=== PATIENT | male | born 1995 | race Caucasian/White ===

== ENCOUNTER → 2020-09-19 10:16 | Outpatient (CLI) | payer BC, SELFPAY ==
--- NOTE | ~2020-09-19 | CT_ITS ---
EXAMINATION: CT abdomen pelvis wo/w con DATE: 09/19/2020 10:59 INDICATION: Left flank and left lower quadrant abdominal pain. History of kidney stones. TECHNIQUE: Computed tomography (CT) of the abdomen and pelvis was performed without and subsequently with 130 cc Omnipaque 350 intravenous contrast. Automated exposure control and iterative reconstructi on technique were employed. Exam dose: 1363.40 mGy-cm total exam DLP. COMPARISON: None. FINDINGS: The lung bases are clear of infiltrate or consolidation. Normal heart size. No pericardial or pleural effusion. Diffuse hepatic steatosis. Normal splenic size. No hepatic, splenic, pancreatic, and adrenal or renal space-occupying mass lesion is evident. No bile duct or pancreatic duct dilatation. No urinary tract calculus or hydroureteronephrosis is detected. The urinary bladder is unremarkable. Prostate gland and seminal vesicles are unremarkable. Normal caliber of the abdominal aorta. No intraperitoneal or retroperitoneal or pelvic mass lesion or adenopathy or ascites. Normal appendix. No bowel obstruction, bowel wall thickening, pneumatosis or intraperitoneal free air . Included skeletal structures are unremarkable. IMPRESSION: Hepatic steatosis No urinary tract calculus or hydroureteronephrosis Normal appendix Reviewed, dictated and finalized at [facility]. Reviewed, dictated and finalized at [facility].
== END ==
PROVIDERS: PCP Emergency Medicine; Visit Provider Emergency Medicine
DX: R10.9 Unspecified abdominal pain (principal); K76.0 Fatty (change of) liver, not elsewhere classified
CPT/HCPCS: 74178; Q9967

== ENCOUNTER 2023-04-06 08:07 | Outpatient (CLI) | payer BC, SELFPAY ==
--- NOTE | ~2023-04-06 | US_ITS ---
US right upper quadrant DATE: 04/06/2023 08:34 INDICATION: Abnormal liver function tests TECHNIQUE: Real-time imaging of liver, gallbladder, pancreas, Doppler evaluation of portal vein COMPARISON: 09/19/2020 CT abdomen FINDINGS: The pancreas is not well-demonstrated due to interference from overlying bowel gas. Diffuse hepatic steatosis. No hepatic space-occupying mass lesion is evident. Normal hepatopedal port al venous flow direction. The common bile duct measures 3 mm, normal. No gallstones, gallbladder wall thickening or pericholecystic fluid collection is noted. Negative son ographic Crews's sign. IMPRESSION: Hepatic steatosis Unremarkable gallbladder No bile duct dilatation Pancreas not optimally demonstrated Reviewed, dictated and finalized at [facility]. Reviewed, dictated and finalized at location [facility]. CING ASSISTANT
--- NOTE | ~2023-04-06 | MR_ITS ---
MRI of the lumbar spine Clinical History: Back pain Technique: Axial T2-weighted images, and sagittal T1-weighted, T2-weighted, and and T2 fat-sat images were acquired. Findings: There is no fracture or subluxation of the lumbar spine. Vertebral bodies maintain normal h eight and alignment. No bone marrow signal abnormality seen. At L1-L2, L2-L3, L3-L4, L4-L5, intervertebral discs maintain normal signal position. No disc bulge or herniation at these levels. No spinal canal stenosis or neural foraminal narrowing at these levels. At L5-S1, there is a left paracentral disc herniation/extrusion, which impinges the descending left S 1-S2 level nerve root. There is minimal left neural foraminal narrowing at this level. Right neural f oramen preserved. Paravertebral soft tissues are unremarkable. Impression: Left paracentral disc herniation/extrusion at L5-S1, which impinges the descending left S1-S2 level n erve root. Reviewed, dictated and finalized at location . AL CARE PROVIDER Impression: Left paracentral disc herniation/extrusion at L5-S1, which impinges the descend ing left S1-S2 level nerve root.
== END 2023-04-06 08:08 ==
LOC: MICIMG 08:08
DX: M54.32 Sciatica, left side (principal); R20.2 Paresthesia of skin; M51.27 Other intervertebral disc displacement, lumbosacral region; K76.0 Fatty (change of) liver, not elsewhere classified
CPT/HCPCS: 72148; 76705